=== PATIENT | female | born 1965 | race Caucasian/White ===

== ENCOUNTER 2017-02-17 21:05 | Observation (INO) | payer BC, MEDICARE ==
[2017-02-17] MEDS ORDERED: ONDANSETRON HCL IV 4 MG/2 ML VIAL IV ONE (22:26)
[2017-02-17] MEDS ORDERED: 0.9 % SODIUM CHLORIDE 1,000 ML BAG IV ONE ×2 (22:26→23:42)
[2017-02-17] MEDS ORDERED: HYDROMORPHONE HCL 1MG/ML **SYRINGE IVP ONE (23:02)
[2017-02-17 23:04] LABS: BASO % 0.5 % (0-6); GRAN % 62.9 % (47-80); HEMATOCRIT 35.1 % (35.0-47.0); HEMOGLOBIN 11.8 gm/dl (11.6-16.0); LYMPH % 25.1 % (16-45); MEAN CELL VOLUME 95.1 fl (81-97); MEAN CORPUSCULAR HEMOGLOBIN 31.9 pg (27-33); MEAN CORPUSCULAR HGB CONC 33.6 g/dl (32-36); MEAN PLATELET VOLUME 9.9 fl (7.4-10.4); MONO % 10.5 % (0-9); PLATELET COUNT 434 K/uL (130-400); RED BLOOD COUNT 3.69 M/uL (3.80-5.40); RED CELL DISTRIBUTION WIDTH 12.7 % (11.5-14.5); URINE APPEARANCE CLEAR; URINE BILIRUBIN NEGATIVE (NEGATIVE); URINE BLOOD NEGATIVE (NEGATIVE); URINE COLOR YELLOW; URINE GLUCOSE (UA) NEGATIVE (NEGATIVE); URINE KETONE NEGATIVE (NEGATIVE); URINE LEUKOCYTE ESTERASE NEGATIVE (NEGATIVE); URINE NITRITE NEGATIVE (NEGATIVE); URINE PROTEIN NEGATIVE (NEGATIVE); URINE UROBILINOGEN 0.2 E.U./dL (0.20 - 1.00); WHITE BLOOD COUNT W/O DIFF 14.5 K/uL (4.2-12.2)
[2017-02-17 23:20] LABS: BILIRUBIN,TOTAL < 0.20 mg/dL (0.2-1.0); BLOOD UREA NITROGEN 52 mg/dL (6-20); CREATININE 2.8 mg/dL (0.5-0.9); EST GLOMERULAR FILTRATION RATE 19 mL/min; GLUCOSE,RANDOM 89 mg/dL (74-109); TOTAL PROTEIN 7.9 g/dL (6.6-8.7)
[2017-02-17 23:22] LABS: ALB/GLOB RATIO 1.5 (1.1-1.8); ALBUMIN 4.7 g/dL (4.0-5.0); ALKALINE PHOSPHATASE 90 U/L (35-104); ALT/SGPT 13 U/L (<33); AST/SGOT 20 U/L (10.0-35.0); LIPASE 41 U/L (13-60)
--- NOTE | 2017-02-18 01:34 | Emergency Department Record ---
History of Present Illness - General Chief Complaint: Abdominal Pain Stated Complaint: RT SIDE ABD PAIN,NAUSEA Time Seen by Provider: 02/17/17 22:19 Source: Patient Mode of Arrival: Ambulatory Limitations: No limitations - History of Present Illness Initial Comments: pt has has ruq pain last few days that feels like when she had her gallbladder out. she states the pain had been severe and it made her pass out. she has nausea and diarrhea and states she is dehydrated. when she had her gb out a few years ago she had complication and was in the hospital a few weeks with drains in. she states bile had leaked into her abdomen.she also thinks that there is swelling in her ruq. MD Complaint: Abdominal pain Onset/Timin -: Hour(s) Location: RUQ Radiation: Back Severity: Moderate Quality: Burning Consistency: Constant, Getting worse Improves With: Nothing Worsens With: Nothing Associated Symptoms: Diarrhea - Related Data LMP (females 10-50): other Patient : No Home Medications Medication Instructions Recorded Confirmed Last Taken Alprazolam [Xanax] 0.5 mg PO ASDIR 02/17/17 02/17/17 Unknown Citalopram Hydrobromide [Celexa] 1 mg PO DAILY 02/17/17 02/17/17 Unknown Cyclobenzaprine HCl [Flexeril] 10 mg PO QHS 02/17/17 02/17/17 Unknown Gabapentin [Neurontin] 300 mg PO BID 02/17/17 02/17/17 Unknown Hydrochlorothiazide 12.5 mg PO DAILY 02/17/17 02/17/17 Unknown Hydrocodone/Acetaminophen [[place] 1 each PO ASDIR 02/17/17 02/17/17 Unknown 5-325 Tablet] Ibuprofen [Motrin] 800 mg PO Q8H 02/17/17 02/17/17 Unknown Lisinopril 20 mg PO DAILY 02/17/17 02/17/17 Unknown Allergies Allergy/AdvReac Type Severity Reaction Status Date / Time acetaminophen [From Tylenol] Allergy VOMITING Verified 02/17/17 21:34 amoxicillin Allergy RASH Verified 02/17/17 21:34 Penicillins Allergy RASH Verified 02/17/17 21:34 Travel Screening - Travel/Exposure Within Last 30 Days Have you traveled within the last 30 days?: No - Travel/Exposure Within Last Year Have you traveled outside the [place] in the last year?: No - Additonal Travel Details Have you been exposed to anyone with a communicable illness?: No - Travel Symptoms Symptom Screening: None Review of Systems Reviewed: No additional complaints except as noted below Constitutional: Reports: As per HPI. Denies: Chills, Fever, Malaise, Night sweats, Weakness, Weight change Eyes: Reports: As per HPI. Denies: Eye discharge, Eye pain, Photophobia, Vision change ENT: Reports: As per HPI. Denies: Congestion, Dental pain, Ear pain, Epistaxis , Hearing loss, Throat pain Respiratory: Reports: As per HPI. Denies: Cough, Dyspnea, Hemoptysis, Stridor, Wheezes Cardiovascular: Reports: As per HPI. Denies: Arrhythmia, Chest pain, Dyspnea on exertion, Edema, Murmurs, Orthopnea, Palpitations, Paroxysmal nocturnal dyspnea, Rheumatic Fever, Syncope Endocrine: Reports: As per HPI. Denies: Fatigue, Heat or cold intolerance, Polydipsia, Polyuria Gastrointestinal: Reports: As per HPI. Denies: Abdominal pain, Constipation, Diarrhea, Hematemesis, Hematochezia, Melena, Nausea, Vomiting Genitourinary: Reports: As per HPI. Denies: Abnormal menses, Discharge, Dyspareunia, Dysuria, Frequency, Hematuria, Incontinence, Retention, Urgency Musculoskeletal: Reports: As per HPI. Denies: Arthralgia, Back pain, Gout, Joint swelling, Myalgia, Neck pain Skin: Reports: As per HPI. Denies: Bruising, Change in color, Change in hair/ nails, Lesions, Pruritus, Rash Neurological: Reports: As per HPI. Denies: Abnormal gait, Confusion, Headache, Numbness, Paresthesias, Seizure, Tingling, Tremors, Vertigo, Weakness Psychiatric: Reports: As per HPI. Denies: Anxiety, Auditory hallucinations, Depression, Homicidal thoughts, Suicidal thoughts, Visual hallucinations Hematological/Lymphatic: Reports: As per HPI. Denies: Anemia, Blood Clots, Easy bleeding, Easy bruising, Swollen glands Past Medical History - SOCIAL HISTORY Smoking Status: Former smoker Alcohol Use: None Drug Use Detail:: Marijuana - RESPIRATORY Hx Respiratory Disorders: No - CARDIOVASCULAR Hx Cardio Disorders: Yes Hx Hypertension: Yes - NEURO Hx Neuro Disorders: No - GI Hx GI Disorders: No - Hx Genitourinary Disorders: No - ENDOCRINE Hx Endocrine Disorders: No - MUSCULOSKELETAL Hx Musculoskeletal Disorders: Yes - PSYCH Hx Psych Problems: No - HEMATOLOGY/ONCOLOGY Hx Hematology/Oncology Disorders: No Family Medical History Any Significant Family History?: Yes Family Hx Comment (NOT TO BE USED IN PLACE OF ITEMS BELOW): [place]-grnadmother and mother Physical Exam - General General Appearance: Alert, Oriented x3, Cooperative, Mild distress - Head Head exam: Normal inspection - Eye Eye exam: Normal appearance, PERRL, EOMI Pupils: Normal accommodation - ENT ENT exam: Normal exam, Mucous membranes moist, Normal external ear exam, Normal orophraynx Ear exam: Normal external inspection. negative: External canal tenderness Nasal Exam: Normal inspection. negative: Discharge, Sinus tenderness Mouth exam: Normal external inspection, Tongue normal Teeth exam: Normal inspection. negative: Dental caries Throat exam: Normal inspection. negative: Tonsillar erythema, Tonsillar exudate - Neck Neck exam: Normal inspection, Full ROM. negative: Tenderness - Respiratory Respiratory exam: Normal lung sounds bilaterally. negative: Respiratory distress - Cardiovascular Cardiovascular Exam: Regular rate, Normal rhythm, Normal heart sounds - GI/Abdominal GI/Abdominal exam: Soft, Normal bowel sounds, Tenderness (ruq) - Rectal Rectal exam: Deferred - exam: Deferred - Extremities Extremities exam: Normal inspection, Full ROM, Normal capillary refill. negative: Tenderness - Back Back exam: Reports: Normal inspection, Full ROM. Denies: Muscle spasm, Rash noted, Tenderness - Neurological Neurological exam: Alert, CN II-XII intact, Normal gait, Oriented X3 - Psychiatric Psychiatric exam: Normal affect, Normal mood - Skin Skin exam: Dry, Intact, Normal color, Warm Course Vital Signs 02/17/17 02/17/17 02/17/17 21:18 21:25 22:49 Temperature 98.3 F 98.3 F Pulse Rate [ 80 72 Pulse Ox Probe] Respiratory 20 20 18 Rate Blood Pressure 144/79 [Left Arm] Blood Pressure 123/81 [Right Arm] Pulse Ox 98 98 98 02/17/17 02/18/17 23:41 01:09 Temperature Pulse Rate [ 74 80 Pulse Ox Probe] Respiratory 20 20 Rate Blood Pressure [Left Arm] Blood Pressure 150/98 132/105 [Right Arm] Pulse Ox 98 100 - Reevaluation(s) Reevaluation #1: 02/18/17 01:38 ct neg Medical Decision Making - Lab Data Result diagrams: 02/17/17 22:26 02/17/17 22:26 Lab Results 02/17/17 02/17/17 02/17/17 Range/Units 22:26 22:26 22:26 WBC 14.5 H (4.2-12.2) K/uL RBC 3.69 L (3.80-5.40) M/uL Hgb 11.8 (11.6-16.0) gm/dl Hct 35.1 (35.0-47.0) % MCV 95.1 (81-97) fl MCH 31.9 (27-33) pg MCHC 33.6 (32-36) g/dl RDW 12.7 (11.5-14.5) % Plt Count 434 H (130-400) K/uL MPV 9.9 (7.4-10.4) fl Gran % 62.9 (47-80) % Lymphocytes % 25.1 (16-45) % Monocytes % 10.5 H (0-9) % Eosinophils % 1.0 (0-6) % Basophils % 0.5 (0-6) % Sodium 140 (136-145) mmol/L Potassium 4.3 (3.4-4.5) mmol/L Chloride 101 (98-107) mmol/L Carbon Dioxide 16.0 L (22-29) mmol/L Anion Gap 23.0 H (7-16) BUN 52 H (6-20) mg/dL Creatinine 2.8 H (0.5-0.9) mg/dL Estimated GFR 19 mL/min Random Glucose 89 (74-109) mg/dL Calcium 9.7 (8.6-10.0) mg/dL Total Bilirubin < 0.20 L (0.2-1.0) mg/dL AST 20 (10.0-35.0) U/L ALT 13 (<33) U/L Alkaline Phosphatase 90 (35-104) U/L Total Protein 7.9 (6.6-8.7) g/dL Albumin 4.7 (4.0-5.0) g/dL Globulin 3.2 (1.4-4.8) gm/dL Albumin/Globulin Ratio 1.5 (1.1-1.8) Lipase 41 (13-60) U/L Urine Color Yellow Urine Appearance Clear Urine pH 5.0 (5.0-8.0) Ur Specific [place] 1.020 (1.002-1.030) Urine Protein Negative (NEGATIVE) Urine Glucose (UA) Negative (NEGATIVE) Urine Ketones Negative (NEGATIVE) Urine Blood Negative (NEGATIVE) Urine Nitrite Negative (NEGATIVE) Urine Bilirubin Negative (NEGATIVE) Urine Urobilinogen 0.2 (0.20 - 1.00) E.U./dL Ur Leukocyte Esterase Negative (NEGATIVE) Disposition Disposition: Admit Clinical Impression: Renal insufficiency, Dehydration, RUQ abdominal pain Disposition: Still a Patient at [facility] Decision to Admit: Admit from ER Decision to Admit Date: 02/18/17 Decision to Admit Time: 01:39 Quality - Quality Measures Quality Measures: N/A - Blood Pressure Screening Does Patient Have Any of the Following: No Blood Pressure Classification: Hypertensive Reading Systolic Measurement: 132 Diastolic Measurement: 105 Screening for High Blood Pressure: < Pre-Hypertensive BP, F/U Documented > [ [id number]] Pre-Hypertensive Follow-up Interventions: Follow-up with rescreen every year.
[2017-02-18] MEDS ORDERED: HYDROMORPHONE HCL 1MG/ML **SYRINGE IVP ONE (01:39)
[2017-02-18] MEDS ORDERED: ONDANSETRON HCL IV 4 MG/2 ML VIAL IVP PRN (02:02)
[2017-02-18] MEDS ORDERED: ACETAMINOPHEN 500 MG TABLET PO PRN (02:02)
[2017-02-18] MEDS ORDERED: ALPRAZOLAM 0.25 MG TABLET PO ONE (03:00)
--- NOTE | 2017-02-18 06:57 | History & Physical ---
History of Present Illness - Date of Service Date of Service for History & Physical: 02/18/17 - History of Present Illness Admitting Diagnosis: Abdominal pain, Acute Kidney Injury History of Present Illness: Mrs. Carrasco is a 51 y/o female who presents with a one week history of acute right upper abdominal pain. The patient says at baseline she always has some pain and bloating due to complicated cholecystectomy she had at [facility] last year. However this pain was worse than usual and she also had several bouts or diarrhea since last week. She describes the pain as dull, 10/ 10 at its worst and with no relieving or exacerbated factors of note. She does take [place] 7.5mg daily TID and high dose ibuprofen for her chronic back pain. She denies any nausea, vomiting, fever, chills, changes in weight or loss of appetite. On arrival to the ED the patient had a CT of the abdomen which is completely normal and there is no indication clinically that there is acute abdomen. Labs were significant for elevated Bun/Cr and the patient was started on IV fluids. Travel Screening - Travel/Exposure Within Last 30 Days Have you traveled within the last 30 days?: No - Travel/Exposure Within Last Year Have you traveled outside the [place] in the last year?: No - Additonal Travel Details Have you been exposed to anyone with a communicable illness?: No - Travel Symptoms Symptom Screening: None Review of Systems Constitutional: Reports: As per HPI. Denies: Chills, Fever, Malaise, Night sweats, Weakness, Weight change Eyes: Reports: As per HPI. Denies: Eye discharge, Eye pain, Photophobia, Vision change ENT: Reports: As per HPI. Denies: Congestion, Dental pain, Ear pain, Epistaxis , Hearing loss, Throat pain Respiratory: Reports: As per HPI. Denies: Cough, Dyspnea, Hemoptysis, Stridor, Wheezes Cardiovascular: Reports: As per HPI. Denies: Arrhythmia, Chest pain, Dyspnea on exertion, Edema, Murmurs, Orthopnea, Palpitations, Paroxysmal nocturnal dyspnea, Rheumatic Fever, Syncope Endocrine: Reports: As per HPI. Denies: Fatigue, Heat or cold intolerance, Polydipsia, Polyuria Gastrointestinal: Reports: As per HPI, Abdominal pain, Diarrhea (RUQ ). Denies : Constipation, Hematemesis, Hematochezia, Melena, Nausea, Vomiting Genitourinary: Reports: As per HPI. Denies: Abnormal menses, Discharge, Dyspareunia, Dysuria, Frequency, Hematuria, Incontinence, Retention, Urgency Musculoskeletal: Reports: As per HPI. Denies: Arthralgia, Back pain, Gout, Joint swelling, Myalgia, Neck pain Skin: Reports: As per HPI. Denies: Bruising, Change in color, Change in hair/ nails, Lesions, Pruritus, Rash Neurological: Reports: As per HPI, Paresthesias (LLE). Denies: Abnormal gait, Confusion, Headache, Numbness, Seizure, Tingling, Tremors, Vertigo, Weakness Psychiatric: Reports: As per HPI, Anxiety. Denies: Auditory hallucinations, Depression, Homicidal thoughts, Suicidal thoughts, Visual hallucinations Hematological/Lymphatic: Reports: As per HPI. Denies: Anemia, Blood Clots, Easy bleeding, Easy bruising, Swollen glands Past Medical History - SOCIAL HISTORY Smoking Status: Former smoker Alcohol Use: None Drug Use Detail:: Marijuana - RESPIRATORY Hx Respiratory Disorders: No - CARDIOVASCULAR Hx Cardio Disorders: Yes Hx Hypertension: Yes - NEURO Hx Neuro Disorders: No - GI Hx GI Disorders: Yes - Hx Genitourinary Disorders: No - ENDOCRINE Hx Endocrine Disorders: No - MUSCULOSKELETAL Hx Musculoskeletal Disorders: Yes - PSYCH Hx Psych Problems: No - HEMATOLOGY/ONCOLOGY Hx Hematology/Oncology Disorders: No Family Medical History Any Significant Family History?: Yes Family Hx Comment (NOT TO BE USED IN PLACE OF ITEMS BELOW): [place]-grnadmother and mother Hx Cancer: Mother (Breast Ca in 60s ) H&P Meds/Allergies - Allergies Allergies: Allergies Allergy/AdvReac Type Severity Reaction Status Date / Time acetaminophen [From Tylenol] Allergy VOMITING Verified 02/17/17 21:34 amoxicillin Allergy RASH Verified 02/17/17 21:34 Penicillins Allergy RASH Verified 02/17/17 21:34 - Home Medications Home Medications Medication Instructions Recorded Confirmed Last Taken Alprazolam [Xanax] 0.5 mg PO BID PRN 02/17/17 02/18/17 Unknown Citalopram Hydrobromide [Celexa] 20 mg PO DAILY 02/17/17 02/18/17 Unknown Cyclobenzaprine HCl [Flexeril] 10 mg PO QHS 02/17/17 02/17/17 Unknown Gabapentin [Neurontin] 300 mg PO BID 02/17/17 02/17/17 Unknown Hydrochlorothiazide 12.5 mg PO DAILY 02/17/17 02/17/17 Unknown Ibuprofen [Motrin] 800 mg PO Q8H PRN 02/17/17 02/17/17 Unknown Lisinopril 20 mg PO DAILY 02/17/17 02/17/17 Unknown Hydrocodone/Acetaminophen [[place] 1 each PO TID PRN 02/18/17 02/18/17 Unknown 7.5-325 Tablet] - Active Medications Active Medications: Current Medications Acetaminophen (Tylenol 500mg Tab) 1,000 mg PO Q6H PRN PRN Reason: PAIN/TEMP Citalopram Hydrobromide (Celexa) 1 mg PO DAILY [place] Gabapentin (Neurontin) 300 mg PO BID [place] Hydromorphone HCl (Dilaudid) 0.5 mg IVP Q4H PRN PRN Reason: Abdominal Pain Sodium Chloride () 1,000 mls @ 125 mls/hr IV .Q8H PRN PRN Reason: LARGE VOLUME IV Lisinopril (Zestril) 20 mg PO DAILY [facility] Non-Formulary Medication (Alprazolam [Xanax]) 0.5 mg PO ASDIR [place] Ondansetron HCl (Zofran) 4 mg IVP Q4H PRN PRN Reason: NAUSEA Physical Exam - Vital Signs Vital Signs: Vital Signs - Last 24 Hrs Temp Pulse Resp BP 02/18/17 02:30 97.5 F L 90 18 167/111 - General General Appearance: Alert, Oriented x3, Cooperative, Mild distress Limitations: No limitations - Head Head exam: Atraumatic, Normal inspection - Eye Eye exam: Normal appearance, PERRL, EOMI Pupils: Normal accommodation - ENT ENT exam: Normal exam, Mucous membranes moist, Normal external ear exam, Normal orophraynx Ear exam: Normal external inspection. negative: External canal tenderness Nasal Exam: Normal inspection. negative: Discharge, Sinus tenderness Mouth exam: Normal external inspection, Tongue normal Teeth exam: Normal inspection. negative: Dental caries Throat exam: Normal inspection. negative: Tonsillar erythema, Tonsillar exudate - Neck Neck exam: Normal inspection, Full ROM. negative: Tenderness - Respiratory Respiratory exam: Normal lung sounds bilaterally. negative: Respiratory distress - Cardiovascular Cardiovascular Exam: Regular rate, Normal rhythm, Normal heart sounds Peripheral Pulses: 2+: Radial (R), Radial (L), Dorsalis Pedis (R), Dorsalis Pedis (L) - GI/Abdominal GI/Abdominal exam: Soft, Normal bowel sounds, Tenderness (isolated to RUQ ) - Rectal Rectal exam: Deferred - exam: Deferred - Extremities Extremities exam: Normal inspection, Full ROM, Normal capillary refill. negative: Tenderness - Back Back exam: Reports: Normal inspection, Full ROM. Denies: Muscle spasm, Rash noted, Tenderness - Neurological Neurological exam: Alert, CN II-XII intact, Normal gait, Oriented X3 - Psychiatric Psychiatric exam: Anxious, Normal affect, Normal mood - Skin Skin exam: Dry, Intact, Normal color, Warm Results - Labs Result Diagrams: 02/17/17 22:26 02/17/17 22:26 VTE H&P Assessment - Risk for VTE Risk for VTE: No Risk Level: Very Low Risk Assessment Date: 02/18/17 Risk Assessment Time: 09:49 VTE Orders Placed or Will Be Placed: No VTE Reason for No Prophylaxis: Not Indicated Plan - Detailed Diagnosis and Plan (1) Nonspecific abdominal pain Plan: Patient presents with acute right upper quadrant abdominal pain 01/26. 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 - CT abdomen/pelvis is insignificant and there is no edema, obstruction, adhesions or any indication of an acute GI process. - WBCs 14.5, however no others SIRS criteria met. - cont with clear liquid diet and advance as tolerated, Dilaudid 0.5mg IV Q4H PRN, start protonix 40mg PO QD - will consider antispasmodic if symptoms persist. Current Visit: Yes Status: Acute Base Code: R10.9 - UNSPECIFIED ABDOMINAL PAIN (2) Acute prerenal azotemia Plan: - BUN/Cr 52/2.8 respectively - likely due to dehydration from diarrhea. - bolused 2 liters Nacl 0.9% and maintenance @ 125mL/hr - holding Lisinopril, avoid nephrotoxic agents. - repeat electrolytes to trend Current Visit: Yes Status: Acute Base Code: R79.89 - OTHER SPECIFIED ABNORMAL FINDINGS OF BLOOD CHEMISTRY (3) Hypertension Plan: -BP not controlled - 167/111 - holding Lisinopril due to SHALA, pt may resume Metoprolol 25mg QD Current Visit: Yes Status: Acute Base Code: I10 - ESSENTIAL (PRIMARY) HYPERTENSION (4) Anxiety Plan: on Xanax 0.5mg BID Current Visit: Yes Status: Acute Base Code: F41.9 - ANXIETY DISORDER, UNSPECIFIED (5) Chronic back pain Plan: - resume Neurotin dosing and hold [place] - pt to cont w/ Dilaudid 0.5mg Q4H PRN Current Visit: Yes Status: Acute Base Code: M54.9 - DORSALGIA, UNSPECIFIED; G89.29 - OTHER CHRONIC PAIN (6) Full code status Plan: FULL CODE Current Visit: Yes Status: Acute Base Code: Z78.9 - OTHER SPECIFIED HEALTH STATUS - Disposition Repeat electrolytes this afternoon for trending kidney function. Likely D/C in the am.
[2017-02-18] MEDS: HYDROMORPHONE HCL 1MG/ML **SYRINGE IVP PRN ×3 (07:44→19:49)
[2017-02-18] MEDS ORDERED: FLU VAC QS 2017-18 (INPT, 6MO+) 60MCG/0.5ML IM ONE (08:41)
[2017-02-18] MEDS ORDERED: CYCLOBENZAPRINE 10MG TABLET PO PRN (09:47)
[2017-02-18] MEDS ORDERED: GABAPENTIN 300 MG CAPSULE PO PRN (09:48)
[2017-02-18] MEDS ORDERED: GABAPENTIN 300 MG CAPSULE PO SCH (10:00)
[2017-02-18] MEDS ORDERED: LISINOPRIL 20 MG TABLET PO SCH (10:00)
[2017-02-18] MEDS: CITALOPRAM 20 MG TABLET PO SCH (10:18)
--- NOTE | 2017-02-18 10:21 | CT SCAN REPORT ---
EXAM: CT OF THE ABDOMEN AND PELVIS WITHOUT CONTRAST HISTORY: PAIN IN RIGHT SIDE OF ABDOMEN. TECHNIQUE: Sequential axial images were obtained from the diaphragms through the ischiorectal fossa after oral contrast administration. FINDINGS: The visualized lung bases appear normal. The gallbladder is surgically absent. The liver appears normal. The pancreas and spleen appear normal. The adrenal glands and kidneys appear normal. No CT findings suggestive of obstructive uropathy. The small and large bowel appears normal. The appendix is visualized and appears normal. There is degenerative change of the lumbar spine. The urinary bladder appears normal. There is atheromatous change of the abdominal vasculature. IMPRESSION: NO ACUTE ABDOMINAL OR PELVIC DISEASE PROCESS. JOB NUMBER: [id number] MTDD
[2017-02-18] MEDS: GABAPENTIN 300 MG CAPSULE PO SCH (10:25)
[2017-02-18] MEDS: ATORVASTATIN 20 MG TABLET PO SCH (10:25)
[2017-02-18] MEDS: METOPROLOL SUCC 25 MG TAB.ER PO SCH ×2 (10:28→10:41)
[2017-02-18] MEDS: 0.9 % SODIUM CHLORIDE 1000ML 1,000 ML IV PRN ×2 (10:38→19:24)
[2017-02-18] MEDS: ALPRAZOLAM 0.25 MG TABLET PO PRN (10:40)
[2017-02-18 16:26] LABS: BASO % 0.3 % (0-6); EOS % 2.2 % (0-6); GRAN % 59.8 % (47-80); HEMATOCRIT 30.9 % (35.0-47.0); HEMOGLOBIN 9.7 gm/dl (11.6-16.0); MEAN CELL VOLUME 98.4 fl (81-97); MEAN CORPUSCULAR HGB CONC 31.4 g/dl (32-36); MEAN PLATELET VOLUME 9.3 fl (7.4-10.4); MONO % 10.7 % (0-9); PLATELET COUNT 339 K/uL (130-400); RED BLOOD COUNT 3.14 M/uL (3.80-5.40); RED CELL DISTRIBUTION WIDTH 12.6 % (11.5-14.5); WHITE BLOOD COUNT W/O DIFF 11.6 K/uL (4.2-12.2)
[2017-02-18 16:28] LABS: MEAN CORPUSCULAR HEMOGLOBIN 30.8 pg (27-33)
[2017-02-18 16:42] LABS: CREATININE 1.7 mg/dL (0.5-0.9)
[2017-02-18] MEDS ORDERED: PATIENT OWN MED: PO SCH (18:00)
[2017-02-18] MEDS ORDERED: EXCEDRIN EXTRA STRENGTH PO PRN (18:00)
[2017-02-19] MEDS: HYDROMORPHONE HCL 1MG/ML **SYRINGE IVP PRN ×3 (00:28→09:16)
[2017-02-19] MEDS: 0.9 % SODIUM CHLORIDE 1000ML 1,000 ML IV PRN (03:53)
[2017-02-19 06:07] LABS: BASO % 0.4 % (0-6); EOS % 2.2 % (0-6); GRAN % 54.6 % (47-80); HEMATOCRIT 29.8 % (35.0-47.0); HEMOGLOBIN 9.4 gm/dl (11.6-16.0); LYMPH % 32.6 % (16-45); MEAN CELL VOLUME 99.3 fl (81-97); MEAN CORPUSCULAR HEMOGLOBIN 31.3 pg (27-33); MEAN CORPUSCULAR HGB CONC 31.5 g/dl (32-36); MEAN PLATELET VOLUME 9.3 fl (7.4-10.4); MONO % 10.2 % (0-9); PLATELET COUNT 316 K/uL (130-400); RED CELL DISTRIBUTION WIDTH 12.8 % (11.5-14.5); WHITE BLOOD COUNT W/O DIFF 8.6 K/uL (4.2-12.2)
[2017-02-19 06:15] LABS: CREATININE 1.4 mg/dL (0.5-0.9)
[2017-02-19] MEDS: ALPRAZOLAM 0.25 MG TABLET PO PRN (10:04)
[2017-02-19] MEDS: GABAPENTIN 300 MG CAPSULE PO SCH (10:05)
[2017-02-19] MEDS: METOPROLOL SUCC 25 MG TAB.ER PO SCH (10:06)
[2017-02-19] MEDS: CITALOPRAM 20 MG TABLET PO SCH (10:06)
[2017-02-19] MEDS: ATORVASTATIN 20 MG TABLET PO SCH (10:07)
[2017-02-19] MEDS ORDERED: HYDROMORPHONE HCL 1MG/ML **SYRINGE IVP ONE (11:06)
--- NOTE | 2017-02-19 11:25 | Discharge Summary ---
Providers Date of admission: 02/18/17 02:00 Attending physician: JONATHON BOSE Primary care physician: HANNAH GONZALEZ D.O. Physical Exam - Vital Signs Vital Signs: Vital Signs - Last 24 Hrs Temp Pulse Resp BP Pulse Ox 02/19/17 10:00 98.0 F 82 18 140/87 96 02/19/17 08:56 16 02/18/17 21:00 18 02/18/17 20:00 97.5 F L 77 20 127/77 98 02/18/17 18:00 98.7 F 84 18 146/82 98 - General General Appearance: Alert, Oriented x3, Cooperative, Mild distress Limitations: No limitations - Head Head exam: Atraumatic, Normal inspection - Eye Eye exam: Normal appearance, PERRL, EOMI Pupils: Normal accommodation - ENT ENT exam: Normal exam, Mucous membranes moist, Normal external ear exam, Normal orophraynx Ear exam: Normal external inspection. negative: External canal tenderness Nasal Exam: Normal inspection. negative: Discharge, Sinus tenderness Mouth exam: Normal external inspection, Tongue normal Teeth exam: Normal inspection. negative: Dental caries Throat exam: Normal inspection. negative: Tonsillar erythema, Tonsillar exudate - Neck Neck exam: Normal inspection, Full ROM. negative: Tenderness - Respiratory Respiratory exam: Normal lung sounds bilaterally. negative: Respiratory distress - Cardiovascular Cardiovascular Exam: Regular rate, Normal rhythm, Normal heart sounds Peripheral Pulses: 2+: Radial (R), Radial (L), Dorsalis Pedis (R), Dorsalis Pedis (L) - GI/Abdominal GI/Abdominal exam: Soft, Normal bowel sounds, Tenderness (isolated to RUQ ) - Rectal Rectal exam: Deferred - exam: Deferred - Extremities Extremities exam: Normal inspection, Full ROM, Normal capillary refill. negative: Tenderness - Back Back exam: Reports: Normal inspection, Full ROM. Denies: Muscle spasm, Rash noted, Tenderness - Neurological Neurological exam: Alert, CN II-XII intact, Normal gait, Oriented X3 - Psychiatric Psychiatric exam: Anxious, Normal affect, Normal mood - Skin Skin exam: Dry, Intact, Normal color, Warm Hospitalization - Hospitalization Admission Diagnosis: Abdominal pain, Acute Kidney Injury - Problem List/Discharge Diagnosis (1) Nonspecific abdominal pain Plan: Patient presents with acute right upper quadrant abdominal pain 01/26. 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 - CT abdomen/pelvis is insignificant and there is no edema, obstruction, adhesions or any indication of an acute GI process. - diet advance and tolerated, pt to f/u with PCP regarding chronic pain management Status: Acute Base Code: R10.9 - UNSPECIFIED ABDOMINAL PAIN (2) Acute prerenal azotemia Plan: - BUN/Cr 52/2.8 respectively - likely due to dehydration from diarrhea. - bolused 2 liters Nacl 0.9% and maintenance @ 125mL/hr - holding Lisinopril, avoid nephrotoxic agents. - Cr 2.8 --> 1.7--> 1.4 Status: Acute Base Code: R79.89 - OTHER SPECIFIED ABNORMAL FINDINGS OF BLOOD CHEMISTRY (3) Hypertension Plan: -BP not controlled - 140/87 - resuming Lisinopril, pt may resume Metoprolol 25mg QD Status: Acute Base Code: I10 - ESSENTIAL (PRIMARY) HYPERTENSION (4) Anxiety Plan: on Xanax 0.5mg BID Status: Acute Base Code: F41.9 - ANXIETY DISORDER, UNSPECIFIED (5) Chronic back pain Plan: - resume Neurotin dosing and hold [place] - pt to cont w/ Dilaudid 0.5mg Q4H PRN Status: Acute Base Code: M54.9 - DORSALGIA, UNSPECIFIED; G89.29 - OTHER CHRONIC PAIN (6) Anemia Plan: - HB 11 --> 9, no active bleeding identified. - likely dilutional due to fluid challenge. Status: Acute Base Code: D64.9 - ANEMIA, UNSPECIFIED (7) Full code status Status: Acute Base Code: Z78.9 - OTHER SPECIFIED HEALTH STATUS - Disposition Repeat electrolytes this afternoon for trending kidney function. Likely D/C in the am. - Hospitalization Course Disposition: Home, Self-Care Hospital Course: 51 y/o female who presented with acute right upper quadrant pain. She has a history of complicated laprascopic cholecystectomy with conversion to open surgery 1 year ago and [facility] and since then has had ongoing pain in the right lower quadrant. She describes a dull sensation w/o any exacerbating factors, which is intermittent and 10/10 in severity for the past one week. She takes [place] for her back and says the [place] was helping with it but on this episode there was no relief. On arrival to the ED CT abdomen/ pelvis was done which did not show any significant pathology. The patient was started on IV pain medication protonix and clear liquid diet. Labs showed elevated WBCs and acute kidney. The patient was fluid challenged and labs redrawn which showed marked improvement in kidney function. The patient's diet was advanced to soft and then regular diet which she was able to tolerate without pain or diarrhea. Remainder of hospital course as per problem list. Patient to follow up with her PCP regarding chronic pain. It was explained to her that she likely is experiencing postcholecystectomy syndrome and that she should cont pain medications as prescribed. Abnormal Labs: Abnormal Lab Results 02/18/17 02/18/17 02/19/17 Range/Units 16:21 16:21 05:25 RBC 3.14 L (3.80-5.40) M/uL Hgb 9.7 L (11.6-16.0) gm/dl Hct 30.9 L (35.0-47.0) % MCV 98.4 H (81-97) fl MCHC 31.4 L (32-36) g/dl Monocytes % 10.7 H (0-9) % Carbon Dioxide 21.0 L 21.0 L (22-29) mmol/L BUN 32 H 24 H (6-20) mg/dL Creatinine 1.7 H 1.4 H (0.5-0.9) mg/dL Calcium 8.0 L 7.8 L (8.6-10.0) mg/dL 02/19/17 Range/Units 05:35 RBC 3.00 L (3.80-5.40) M/uL Hgb 9.4 L (11.6-16.0) gm/dl Hct 29.8 L (35.0-47.0) % MCV 99.3 H (81-97) fl MCHC 31.5 L (32-36) g/dl Monocytes % 10.2 H (0-9) % Carbon Dioxide (22-29) mmol/L BUN (6-20) mg/dL Creatinine (0.5-0.9) mg/dL Calcium (8.6-10.0) mg/dL Condition at Discharge: (1) Good Discharge Medications - Discharge Medications Home Medications: Ambulatory Orders Alprazolam [Xanax] 0.5 mg PO BID PRN 02/17/17 [Last Taken Unknown] Citalopram Hydrobromide [Celexa] 20 mg PO DAILY 02/17/17 [Last Taken Unknown] Cyclobenzaprine HCl [Flexeril] 10 mg PO QHS 02/17/17 [Last Taken Unknown] Gabapentin [Neurontin] 300 mg PO BID 02/17/17 [Last Taken Unknown] Hydrochlorothiazide 12.5 mg PO DAILY 02/17/17 [Last Taken Unknown] Ibuprofen [Motrin] 800 mg PO Q8H PRN 02/17/17 [Last Taken Unknown] Lisinopril 20 mg PO DAILY 02/17/17 [Last Taken Unknown] Hydrocodone/Acetaminophen [[place] 7.5-325 Tablet] 1 each PO TID PRN 02/18/17 [ Last Taken Unknown] Discharge Plan - Discharge Instructions Instructions: Acute Abdominal Pain (DC) Quality Measures - Quality Measures Quality Measures: Documentation of Current Medications in Medical Record, Screening for High Blood Pressure and F/U Documented - Current Medications Quality Measure: Measure #130: Documentation of Current Medications Documentation of Current Medications: <Current Medications Documented/Reviewed> [G8427] - Blood Pressure Screening Quality Measure: Screening for High Blood Pressure and Follow-Up Documented Does Patient Have Any of the Following: Active Dx of HTN Blood Pressure Classification: Hypertensive Reading Systolic Measurement: 167 Diastolic Measurement: 111 Screening for High Blood Pressure: Patient Exclusion, Hx of HTN [G9744] - Elder Abuse Suspicion Index EASI Reference Information: Hayde BRYANT, Jean C, Charles D, Keyur Urias.Development and validation of a tool to assist physicians identification of elder abuse: The Elder Abuse Suspicion Index (EASI ). Journal of Elder Abuse and Neglect, 2008; 20 (3): 276-300.
== END 2017-02-19 11:41 | disposition home or self-care (01) ==
LOC: ER 21:05 → MEDSURG 02-18 02:00
PROVIDERS: ADMIT Internal Medicine; ATTEND Internal Medicine
DX: R10.11 Right upper quadrant pain (principal); R79.89 Other specified abnormal findings of blood chemistry; I10 Essential (primary) hypertension; M54.9 Dorsalgia, unspecified; D64.9 Anemia, unspecified; Z87.891 Personal history of nicotine dependence; F41.9 Anxiety disorder, unspecified; Z23 Encounter for immunization
CPT/HCPCS: 99285 ×2; 96374; 96375; 83605; 83690; 85025 ×3; 80048 ×2; 80053; 81003; 74176; 90686; G0378 ×2; G0008; J2405 ×2; J1170 ×3; 99217; 99220; J7030

== ENCOUNTER 2018-06-23 21:03 | Emergency (ER) | payer BC ==
--- NOTE | 2018-06-23 21:14 | Emergency Department Record ---
History of Present Illness - General Chief complaint: Pain Stated complaint: RT ARM PAIN Time Seen by Provider: 06/23/18 21:09 Source: Patient Mode of Arrival: Ambulatory Limitations: No limitations - History of Present Illness Initial comments: 53 yo female presents to ED for evaluation of worsening shoulder pain symptoms today. Patient reports previous injury to the shoulder, reports that she slept in the chair last night which may have worsened her symptoms. Patient denies chest pain or discomfort. Patient reports taking her Pender at home which has not helped either. MD Complaint: Joint pain Onset/Timin -: Days(s) Location: Right History of Same: Yes -: Yes Arthralgia Radiation: Distal, Other (To the elbow) Quality: Aching Consistency: Constant Improves with: Nothing Worsens with: Palpation Associated Symptoms: Denies other symptoms - Related Data Home Medications Medication Instructions Recorded Confirmed Last Taken Ketotifen Fumarate 5 ml OP DAILY 06/23/18 06/23/18 Unknown Metoprolol Succinate [Toprol Xl] 50 mg PO DAILY 06/23/18 06/23/18 Unknown Multivitamin [Multi-Vitamin Daily] 1 each PO DAILY 06/23/18 06/23/18 Unknown Omeprazole [Prilosec] 20 mg PO DAILY 06/23/18 06/23/18 Unknown Ondansetron HCl [Zofran] 8 mg PO DAILY 06/23/18 06/23/18 Unknown Allergies Allergy/AdvReac Type Severity Reaction Status Date / Time acetaminophen [From Tylenol] Allergy VOMITING Verified 02/17/17 21:34 amoxicillin Allergy RASH Verified 02/17/17 21:34 Penicillins Allergy RASH Verified 02/17/17 21:34 Review of Systems Constitutional: Denies: Chills, Fever, Malaise, Night sweats Eyes: Denies: Eye discharge, Eye pain ENT: Denies: Congestion, Ear pain, Epistaxis Respiratory: Denies: Cough, Dyspnea Cardiovascular: Denies: Chest pain, Dyspnea on exertion Endocrine: Denies: Fatigue, Heat or cold intolerance Gastrointestinal: Denies: Abdominal pain, Nausea, Vomiting Genitourinary: Denies: Incontinence, Retention Musculoskeletal: Reports: Arthralgia. Denies: Back pain, Gout, Joint swelling Skin: Denies: Bruising, Change in color Neurological: Denies: Abnormal gait, Confusion, Headache, Seizure Psychiatric: Denies: Anxiety Hematological/Lymphatic: Denies: Anemia, Blood Clots Past Medical History - SOCIAL HISTORY Smoking Status: Former smoker - RESPIRATORY Hx Respiratory Disorders: No - CARDIOVASCULAR Hx Cardio Disorders: Yes Hx Hypertension: Yes - NEURO Hx Neuro Disorders: No - GI Hx GI Disorders: Yes - Hx Genitourinary Disorders: No - ENDOCRINE Hx Endocrine Disorders: No - MUSCULOSKELETAL Hx Musculoskeletal Disorders: Yes - PSYCH Hx Psych Problems: No - HEMATOLOGY/ONCOLOGY Hx Hematology/Oncology Disorders: No Family Medical History Family Hx Comment (NOT TO BE USED IN PLACE OF ITEMS BELOW): CA-grnadmother and mother Hx Cancer: Mother (Breast Ca in 60s ) Physical Exam - General General Appearance: Alert, Oriented x3, Cooperative, Mild distress Limitations: No limitations - Head Head exam: Atraumatic, Normocephalic, Normal inspection Head exam detail: negative: Abrasion, Contusion, Myers's sign, General tenderness, Hematoma, Laceration - Eye Eye exam: Normal appearance. negative: Conjunctival injection, Periorbital swelling, Periorbital tenderness, Scleral icterus - ENT Ear exam: negative: Auricular hematoma, Auricular trauma Nasal Exam: negative: Active bleeding, Discharge, Dried blood, Foreign body Mouth exam: negative: Drooling, Laceration, Muffled voice, Tongue elevation - Neck Neck exam: Normal inspection. negative: Meningismus, Tenderness - Respiratory Respiratory exam: Normal lung sounds bilaterally. negative: Rales, Respiratory distress, Rhonchi, Stridor - Cardiovascular Cardiovascular Exam: Regular rate, Normal rhythm, Normal heart sounds Peripheral Pulses: 3+: Radial (R) - GI/Abdominal GI/Abdominal exam: Soft. negative: Rebound, Rigid, Tenderness - Rectal Rectal exam: Deferred - exam: Deferred - Extremities Extremities exam: Tenderness, Other (Symptoms are reporducible with palpation of the posterior/lateral shoulder, no evidence for dislocation, compartments of the upper arm and forearm are soft on examination, strong radial pulse on examination.). negative: Calf tenderness, Pedal edema - Back Back exam: Denies: CVA tenderness (R), CVA tenderness (L) - Neurological Neurological exam: Alert, Normal gait, Oriented X3 - Psychiatric Psychiatric exam: Normal affect, Normal mood - Skin Skin exam: negative: Abrasion Type of lesion: negative: abrasion Course - Reevaluation(s) Reevaluation #1: 06/23/18 21:49 Right shoulder: Findings c/w calcific tendonitis Patient was updated on all results Patient reports that she has Motrin 800 mg and Pender at home for her pain symptoms. Will place in a sling as well to reduce use of the shoulder and allow inflammation to improve. Patient appears stable for discharge at this time. Disposition Disposition: Discharge Clinical Impression: Calcific tendonitis Disposition: Home, Self-Care Condition: (2) Stable Instructions: Calcific Tendinitis (ED) Additional Instructions: Return to ED if your symptoms worsen or if you have any concerns. Continue Pender and Naprosyn as directed. Shoulder sling Follow-up with your family doctor in 3-5 days as directed. Forms: Patient Portal Access Time of Disposition: 21:51 Quality - Quality Measures Quality Measures: N/A - Blood Pressure Screening Does Patient Have Any of the Following: No Blood Pressure Classification: Hypertensive Reading Systolic Measurement: 122 Diastolic Measurement: 92 Screening for High Blood Pressure: < First Hypertensive BP, F/U Documented > [ G8950] First Hypertensive Follow-up Interventions: Referral to alternative/primary care provider.
--- NOTE | 2018-06-27 08:29 | RADIOLOGY REPORT ---
EXAM: RIGHT SHOULDER HISTORY: RIGHT SHOULDER PAIN. TECHNIQUE: Three views of the right shoulder were obtained. Comparison: None. FINDINGS: Two calcifications are seen near the greater tuberosity most likely due to calcific tendonitis. There is no fracture or dislocation. No destructive or erosive change identified. IMPRESSION: 1. CALCIFIC TENDONITIS. 2. RIGHT SHOULDER OTHERWISE UNREMARKABLE. JOB NUMBER: [id number] MTDD
== END 2018-06-23 22:07 | disposition home or self-care (01) ==
LOC: ER 21:03
DX: M75.31 Calcific tendinitis of right shoulder (principal); I10 Essential (primary) hypertension; F17.210 Nicotine dependence, cigarettes, uncomplicated
CPT/HCPCS: 99283